=== PATIENT | female | born 1995 | race Caucasian/White ===

== ENCOUNTER 2019-06-13 10:01 | Inpatient (IN) | payer BC ==
[~2019-06-13] VITALS: Ht 167.6 cm; Wt 74.8 kg
[2019-06-13 10:11] VITALS: Ht 167.6 cm; Wt 74.8 kg
--- NOTE | 2019-06-13 10:24 | NUR ---
PT TO ED FOR EVAL OF ABD PAIN. PAIN TO EPIGASTIC AREA. PAIN STARTED AT APPROX 730 AM. PAIN WITH PALPATION TO EPIGASTRIC AREA. ABS FOT. NON RIGID. NON DISTENDED. HAD COFFEE AND SWEET BREAD THIS AM PRIOR TO HAVING PAIN. HX OF ACID REFLUX. PT AWAKE AND ALERT. BREATHING EVEN UNLABORED. PT TO ROOM 14. PLACED ON CM. FAMILY MEMBER AT BEDSIDE. CONTINUE TO MONITOR.
[2019-06-13 10:50] LABS: BASOPHIL % 0.3 % (0-2); PLATELET COUNT 320 x10^3mcL (130-400); RED CELL DISTRIBUTION WIDTH 14.5 % (11.5-14.5)
--- NOTE | 2019-06-13 11:21 | NUR ---
ULTRASOUND AT BEDSIDE..
[2019-06-13 11:27] LABS: microscopic required? YES; urine erythrocyte NEGATIVE (NEGATIVE)
[2019-06-13 11:41] LABS: CALCIUM 8.8 mg/dL (8.5-10.1); CARBON DIOXIDE 31.1 mmol/L (21-32); CHLORIDE SERUM 101 mmol/L (98-107); CREATININE SERUM 0.8 mg/dL (0.6-1.0); GFR1 > 60 mL/min; GLUCOSE SERUM 118 mg/dL (74-106); SODIUM SERUM 139 mmol/L (136-145)
[2019-06-13 11:45] LABS: ALBUMIN 3.9 g/dL (3.4-5.0); ALKALINE PHOSPHATASE 286 U/L (46-116); ALT/SGPT 88 U/L (14-59); AMYLASE 45 U/L (25-115); AST/SGOT 222 U/L (15-37); BILIRUBIN TOTAL 0.69 mg/dL (0.20-1.00); LIPASE 105 IU/L (73-393)
--- NOTE | 2019-06-13 11:59 | NUR ---
PT RESTING COMFOTABLY ON GURNEY. TEXTING ON CELL PHONE. PT DENIES ANY PAIN OR DISCOMFORT AT THIS TIME. REMAINS ON CM. BREATHING EVEN UNLABORED. NO DISTRESS.
--- NOTE | 2019-06-13 13:45 | NUR ---
PT RESTING IN BED ON RT SIDE WITH EYES CLOSED WITH NO SIGNS OF DISTRESS.
--- NOTE | 2019-06-13 14:25 | NUR ---
RECEIVED PT VIA W/C FROM E/D, ACCOMPANIED BY TRANSPORTER. 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 AMBULATORY, NO GAIT OR BALANCE IMPAIRMENT NOTED WHEN WALKING FROM W/C TO BED. DENIES CHEST PAIN OR DISCOMFORT AT THIS TIME. NO ACUTE RESPIRATORY DISTRESS NOTED. UA +MOD BACTERIA, BILI, PROTEIN; C/O DARK YELLOW URINE; DENIES DYSURIA. IV SITE RAC 20G, CDI. ORIENTED PT TO ROOM, BED CONTROLS, CALL LIGHT SYSTEM. SIDE RAILS UP X 2, BED IN LOW POSITION. MOTHER, PAGE NICHOLS, JUST CAME IN DURING ASSESSMENT. WILL ENDORSE TO MELISSA MCCLELLAN.
[2019-06-13 15:01] VITALS: BP 123/80
--- NOTE | 2019-06-13 15:37 | NUR ---
RECEIVED PATIENT ALERT AND ORIENTED TIMES FOUR. SHE HAS BEEN WITH COMPLAINTS OF EPIGASTRIC PAIN AND A PAIN SHE HAS NEVER FELT PRIOR. SHE STATES IT IS TO THE UPPER MID CHEST AND SHE HAD RECEIVED PAIN MEDICATION AND ZOFRAN IN THE ER. SHE HAS BEEN GIVEN LEVAQUIN AND NO ADVERSE REACTION NOTED. PATIENTAHS NOTED LASB OF THE AST AT 22 AND THE ALT AT 88. SHE ADMITS TO SOCIAL DRINKING BUT ONLY ONCE A WEEK AND SHE IS A DAILY COFFEE DRINKER AND ADMITS TO DRINKING ALOT OF COFFEE. SEEN BY DR SAMAYOA AND DISCUSSED PLAN OF CARE. PATIENT FOR HIDA TODAY AND TO REMAIN NPO FOR THE TESTING. LUNGS ARE CLEAR AND BOWEL SOUNDS ACTIVE AND ABDOMEN IS FLAT. PATIENT IS NOTED TO HAVE SOME MODERATE BACTERIA IN THE URINE. WILL CONTINUE TO MONITOR.
--- NOTE | 2019-06-13 19:06 | NUR ---
CALL RECEIVED FROM DR SAMAYOA AND PATIENTS HIDA SCAN WAS NEGATIVE. SHE DOES NOT NEED GALLBLADDER SURGERY AT THIS TIME.
--- NOTE | 2019-06-13 19:40 | NUR ---
RECEIVED PT IN BED AWAKE,ALERT,ORIENTED X4 W/ FAMILY AT BEDSIDE. LUNGS CTA. BOWEL SOUNDS ACTIVE. SHE DENIED ABDL PAIN. SHE DENIED HAVING N/V AT THIS TIME. W/ IVF D5NS AT 80 CC/HR VIA RTAC. CALL LIGHT W/IN REACH.
[2019-06-13 19:48] VITALS: BP 127/86
--- NOTE | 2019-06-14 05:30 | NUR ---
PT SLEPT THROUGHOUT THE NIGHT. SHE HAD NO C/O ABDL PAIN. NO EPISODE OF N/V. SHE IS KEPT NPO ORDERED. IV D5NS INFUSING WELL AT 80 CC/HR VIA RTAC. ALL NEEDS ATTENDED TO. PT'S FAMILY MEMBER AT BEDSIDE.
[2019-06-14 05:32] VITALS: BP 101/73
[2019-06-14 06:15] LABS: BASOPHIL % 0.4 % (0-2); PLATELET COUNT 276 x10^3mcL (130-400); RED CELL DISTRIBUTION WIDTH 14.9 % (11.5-14.5)
[2019-06-14 06:36] LABS: CALCIUM 8.5 mg/dL (8.5-10.1); CARBON DIOXIDE 28.2 mmol/L (21-32); CHLORIDE SERUM 105 mmol/L (98-107); CREATININE SERUM 0.8 mg/dL (0.6-1.0); GFR1 > 60 mL/min; GLUCOSE SERUM 91 mg/dL (74-106); POTASSIUM SERUM 4.4 mmol/L (3.5-5.1); SODIUM SERUM 141 mmol/L (136-145)
--- NOTE | 2019-06-14 08:00 | NUR ---
A/A/OX4; NO RESP DISTRESS ON RA. DENIED CHEST PAIN. ABD FLAT/SOFT. NO TENDERNESS. BOWEL SOUND ACTIVE. HAD BM YESTERDAY. NPO SINCE ADMISSION. IVF OF NS 80CC/HR. IV SITE CLEAN. MOTHER AT BED SIDE. ENCOURAGE AMBULATE TOLERATED.
[2019-06-14 08:34] VITALS: BP 108/71
[2019-06-14] MEDS ORDERED: GOOD NEIGHBOR P20 M2 PO (09:19)
[2019-06-14 09:35] VITALS: BP 108/71
--- NOTE | 2019-06-14 09:56 | NUR ---
HAD LATE BREAKFAST. STATED HAD MILD UPPER ABD DISCOMFORT, BUT NO NAUSEA AND VOMITING. D/C TO HOME PER ORDER. INSTRUCTION GIVEN. IV D/C'D. CONDITION STABLE.
== END 2019-06-14 10:00 | disposition home or self-care (01) | DRG 392 ==
LOC: ED 10:01 → MU 13:05
PROVIDERS: Emergency Medicine; ADMIT Internal Medicine
DX: K29.70 Gastritis, unspecified, without bleeding (principal); D72.829 Elevated white blood cell count, unspecified; K82.8 Other specified diseases of gallbladder
CPT/HCPCS: 78226; A9537; C9113; G0378; J1885; J1956; J2405; J2543; J3010; J7030; J7042; Q0092